=== PATIENT | female | born 1990 | race Caucasian/White ===

== ENCOUNTER → 2021-05-21 08:04 | Outpatient (CLI) | payer MEDICAID, SELFPAY ==
[2021-05-21 09:02] LABS: Absolute Lymphocyte Count 2.73 X10^3/uL (0.83-4.51); Absolute Neutrophil Count 3.9 X10^3/uL (2.0-7.7); Basophil# 0.02 X10^3/uL; Basophil% 0.3 % (0-1); Eosinophil# 0.19 X10^3/uL; Eosinophils% 2.6 % (0-5); Hematocrit 39.3 % (37-47); Hemoglobin 13.2 g/dL (12.0-15.0); Lymphocyte # 2.73 X10^3/ul (0.83-4.51); Lymphocyte % 36.7 % (19-41); Mean Corp Hgb Conc 33.6 g/dL (32-36); Mean Corpuscular Hgb 30.7 pg (27.0-32.0); Mean Corpuscular Volume 91.4 fL (81-99); Monocyte% 8.1 % (0-10); NRBC Flagged by Analyzer 0 % (0-5); Neutrophil # 3.87 X10^3/uL (2.7-7.7); Neutrophil % 51.9 % (47-70); Platelet Count 287 K/mm3 (150-450); RBC Distribution Width CV 11.7 % (11.6-14.6); RBC Distribution Width SD 39.4 fl (35.1-43.9); White Blood Count 7.4 K/mm3 (4.4-11.0)
[2021-05-21 09:03] LABS: Internal QC Validated? YES +Cl - CLEAR BKGD; Pregnancy, Urine Negative Negative
[2021-05-21 09:17] LABS: Anion Gap 6 (5-15); BUN 10 mg/dL (7-18); BUN/Creat Ratio 10.1 RATIO (10-20); Calcium,Total 9.5 mg/dL (8.5-10.1); Chloride 104 mmol/L (98-107); Creatinine, Serum 0.99 mg/dL (0.55-1.02); EST Glomerular Filtration Rate 70 mL/min (>60); Est Glom Filt Rate - Afr Amer 85 mL/min (>60); Glucose 102 mg/dL (74-106); Potassium 4.1 mmol/L (3.5-5.1); Sodium Level 137 mmol/L (136-145)
--- NOTE | 2021-05-21 16:37 | PCM.TILTTABL ---
Physician Tilt Table Report Patient's Physicians Primary Care Physician: Yesica Kohli NP Funeral Workers: Fermin Romo Indications/Diagnosis: Syncope Procedure Comments: The patient was brought to the noninvasive lab in the postabsorptive state. Initial vitals were obtained an EKG demonstrating normal sinus rhythm with a rate of 92 bpm and a blood pressure of 115/83 mmHg. The patient was then placed in the head upright tilt table position at 70 degrees. Continuous EKG monitoring was performed. Patient maintained sinus rhythm with sinus tachycardia throughout the recording. Nonspecific changes were noted on the EKG and patient complained of nonspecific findings. The patient was then placed back in the recumbent position after 20 minutes. Patient was administered 0.4 mg of sublingual nitroglycerin. Initial blood pressure was 116/87 mmHg with a heart rate of 116 bpm. The patient subsequently became more tachycardic with a heart rate going up to 144 bpm and patient feeling clammy chest tightness and subsequently lost consciousness. Patient was then placed in the recumbent position with recovery of the blood pressure recorded at 108/64 with a heart rate of 86 bpm. At the end of the procedure the blood pressure was 110/72 with a heart rate of 95 bpm. Summary: Orthostatic syncope noted on tilt table testing. Above appear to be provoked by sublingual nitroglycerin.
== END ==
PROVIDERS: PCP Registered Nurse; Referring Provider Registered Nurse; Visit Provider Registered Nurse
DX: Z01.812 Encounter for preprocedural laboratory examination (principal); I95.1 Orthostatic hypotension
CPT/HCPCS: 36415; 80048; 81025; 85025; 93660; J7040; A4216

== ENCOUNTER → 2021-07-17 08:05 | Outpatient (CLI) | payer MEDICAID, SELFPAY ==
--- NOTE | 2021-07-17 09:34 | TELEMED_ITS ---
[facility] has confirmed receipt of a request for visit. This document confirms receipt of the order initiating the consult. To find the results of the consultation, please view the patient's reports for the scanned Telemed Consult.
== END ==
PROVIDERS: PCP Registered Nurse
DX: G43.109 Migraine with aura, not intractable, without status migrainosus (principal); M43.6 Torticollis; Z87.898 Personal history of other specified conditions
CPT/HCPCS: 95819

== ENCOUNTER 2023-03-30 13:16 | Outpatient (RCR) | payer MEDICAID, SELFPAY ==
--- NOTE | 2023-03-31 13:06 | HP.OTFCE_ITS ---
Task Lift Floor (Occasional 1-33% of Day): 40# Floor (Frequent 34-66% of Day): 20# Floor (Constant 67-100% of Day): NA Floor PDL: Light-Medium Knee (Occasional 1-33% of Day): 40# Knee (Frequent 34-66% of Day): 20# Knee (Constant 67-100% of Day): NA Knee PDL: Light-Medium Waist (Occasional 1-33% of Day): 40# Waist (Frequent 34-66% of Day): 20# Waist (Constant 67-100% of Day): NA Waist PDL: Light-Medium Shoulder (Occasional 1-33% of Day): 35# Shoulder (Frequent 34-66% of Day): 18# Shoulder (Constant 67-100% of Day): NA Shoulder PDL: Light-Medium Overhead (Occasional 1-33% of Day): 15# Overhead (Frequent 34-66% of Day): 8# Overhead (Constant 67-100% of Day): n/a Overhead PDL: Sedentary-Light Comments: Pt would be able to tolerate physical demand level of light-medium work with lifting at floor, knee, waist and shoulder levels. pt would be able to tolerate physical demand level of light/sedentary work with overhead movement. pt can not lift on constant basis due to increase in pain. Work Activity/Posture Bending: Occasional Ability (1-33% of day) Comments: Pt gets lightheaded with consistent bending over. Squatting: Occasional Ability (1-33% of day) Comments: Pt requires external support when performing task. Kneeling: Occasional Ability (1-33% of day) Comments: Pt requires external support when performing task. Reaching out: Frequent Ability (34-66% of day) Reaching up: Frequent Ability (34-66% of day) Sitting: Constant Ability (67-100% of day) Comments: with ability to shift body weight Walking: Frequent Ability (34-66% of day) Comments: Pt can tolerate walking 10-15 min at a time. Standing: Occasional Ability (1-33% of day) Comments: Pt can tolerate standing 10 min prior to requiring a seated rest break. Reference Reference: Duration Sedentary Sedentary Light Light Light Medium Medium Medium Heavy Very Heavy Heavy Occasional (0-33% of day) Frequent (34-66% of day) Constant (67-100% of day) 10 # Negligible Negligible 15 # 8 # Negligible 20 # 10# Negli. 35 # 18 # 7 # 50 # 25 # 10 # 75 # 100 # >100 # 38 # 50 # >50 # 15 # 20 # >20 # Patient Information Height: 1.7 m Weight:: 99.79 kg Hand Dominance: right hand BP (Medication Use/Usual Values per pt report): Pt unable to report usual BP this date. 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 Pt manages pain and chronic neck/back pain by going to the Chiro. Pt reports she has severe IBS (remission ~5 years ago though recently dx). Pt reports she has had several falls, including down stairs or tripping over items. Pt reports injured back at around 8-9 years old and has been constant since. pt denies working with pain mtg. Diagnoses Diagnoses: Pt reports following dx: IBS out of remission ~1-2 weeks ago, GERD ADHD, Autism Fibromyalgia ~7-8 years ago and then ~2 years ago Insomnia Symptoms Symptoms: Pt reports neck and back pain, low endurance, migraines, IBS that limit her ability to perform tasks. Pt self manages pain at home with ice/heat. Per patient she has seizures around menstural cycle. Pain Pain: Pt reports at rest pain is around a 7/10 and she pushes herself by walking around the block. Pt reports she can carrying groceries about 20-30' though will have pain for ~1-1.5 day after. 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 She would be working 4 hrs a day with 2 days a week of 8hrs a day. Pt discontinued due to severe fatigue and pain. Pt worked through [employer] in multiple states [place], [place], [place]. Pt states she love kids. Occasionally dog sitting though has not since 2019. 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 pt feels she is unable to work at this time due to health symptoms Behavioral Behavioral: Pt reports Mental health - Depression, Anxiety, PTSD, Autism, POTS pt was cooperative throughout the assessment. ADLS ADLS: Daily schedule: Pt reports she can't shower/bath every day because it takes too much effort. Pt reports usually don't change 1-2 days, have very slow days Pt reports she usually does light food preparation for meals, or someone bring meals. Breakfast - toaster/microwave, cook 2-3 times a week - then has salad or sandwich Pt reports she wears soft/flowy, normally wear flip flops however wore shoes this date - no difficulty with shoe tying. Pt reports she relies on SNAP benefits - phone plan is free, healthcare is Free Pt reports she lives with cousin. Pt reports her apartment has no stairs to enter though has a flight 12 stairs up stairs though limits going up and down 2-3x a day. Physical Examination Physical Examination: Pt is well appearing. Prior to following activities pt HR 88 O2 98%. Pt states she is 7.5/10 pain because she dared to leave the house ROM: Pt demonstrates BUE and BLE within functional limits. Pt reports elbow pain post driving Strength: Fet (# per pressure) Right: shoulder extension/flexion 20.5#/14.9#; elbow extension/flexion 24#/21.7#; hip flexion 31.1#; quad 24.2#; hamstring 19# Left: shoulder extension/flexion 19.4#/15.2#; elbow extension/flexion 23.4#/25#; hip flexion 30.6#; quad 20.7#; hamstring 17.3# Right Propulsion Generator Repairer Strength Average: 56.00 Right Propulsion Generator Repairer Strength Percentile: 75th percentile Left Propulsion Generator Repairer Strength Average: 62.00 Left Propulsion Generator Repairer Strength Percentile: 72th percentile Right Lateral Pinch Average: 17.66 Right Lateral Pinch Percentile: 90th percentile Left Lateral Pinch Average: 15.66 Left Lateral Pinch Percentile: between 75th-90th percentile Right Tripod Pinch Average: 15.66 Right Tripod Pinch Percentile: between 50th-75th percentile Left Tripod Pinch Average: 18.33 Left Tripod Pinch Percentile: >90th percentile Comments: Pt reports some pain with tripod pinch on left hand. HR 86 at rest and while performing task. Sensation: Denies any deficits Fine Motor: 9 HPT right hand: 25.16sec - 0 percentile left hand: 23.5 sec - between 10th-25th percentile Balance: Functional reach test: 11 inches Interpretation: A score of 6 or less indicates a significant increased risk for falls. A score between 6-10 inches indicates a moderate risk for falls. no loss of balance noted during assessment. Non Material Handling Activities Bending: Pt participates and performs 3 times, 10x then 10x rapidly. 32.90 sec 10x, 27.94 sec 10x rapidly holds onto table HR 126 O2 95% Pt reports Back pain Lower back and some lightheadedness post task pt can bend forward on occasional ability Squatting: Pt participates and performs 3 times, 10x then 10x rapidly. Pt uses right hand holding on to table Pt completes on R knee 35.14 sec 10x no increase in speed HR 126 O2 95% pt demo ability to squat on occasional ability with external support Kneeling: Pt participates and performs 3 times, 10x then 10x rapidly. Kneeling 10x 55.40 sec, 10x rapidly 54.58 sec HR 145 97 Pt reports pain >8/10 pt demo ability to squat on occasional ability with external support Reaching out/up: Pt participates and performs 3 times, 10x then 10x rapidly. Pt reaches out 10x 22.87 sec no increase in speed when performing rapidly Pt reaching Up 10x 26.87 sec no increase in speed when performing rapidly HR 106 96% O2 pt demo reach up/put on frequent ability Walking: Pain in lower back and legs very sharp pain post 10 min walk inside and outside on even ground. Pt reports she did walk independently to the facility with a bag on back ~4#. HR126 recovers to 107 post 1 min pt can walk on frequent ability Standing: Pt tolerates standing ~15 min with intermittent leaning on counter top. pt can stand on occasional ability Sitting: Pt could sit for at least 30 minutes at a time with no apparent or expressed discomfort. Pt can sit on constant ability with shifting body weight. Climbing Stairs: Pt uses reciprocal pattern ascending 10 steps with one hand on handrail in 30 sec. When descending pt utilizes bilateral hands on rail and requires ~1 min to complete tasks with pt stating My legs are shaking. Therapist noted some shakiness, though able to walk another 10 min post task wi th no seated rest break. Dynamic Occasional Lifting Capacity Floor Lift: Pt max lift 40# from floor level, pt lifts with her back - independently pt demo lift with poor lifting mechanics Knee Lift: Pt max lift 40#, pt lifts with her back - independently pt demo lift with poor lifting mechanics Waist Lift: Pt max lift 40# - pt lifts with her back - independently pt demo lift with poor lifting mechanics Shoulder Lift: Pt max lift 35# - pt lifts with her back - independently pt demo lift with poor lifting mechanics Overhead Lift: Pt max lift 15# - pt lifts with her back - independently pt demo lift with poor lifting mechanics Carrying: Pt able to carry 35# while holding box close to body and compensating with posterior lean Comments: Pt required rest breaks standing after each lifting activity, starts to perspire after waist Pt did report lightheadedness, takes a drink and sits to recover heart rate varied from 123-138 throughout tasks.
--- NOTE | 2023-03-31 13:06 | HP.OTFCE.D ---
FCE D/C Summary Discharge text: BRIAN Jaspal CAMPUZANOJEANIE was seen for a one time visit for an FCE on 03/30/23 and is discharged.
== END 2023-03-30 19:00 | disposition home or self-care (01) ==
LOC: OT 13:16
PROVIDERS: PCP Registered Nurse; Referring Provider Registered Nurse; Visit Provider Registered Nurse
DX: M79.7 Fibromyalgia (principal)
CPT/HCPCS: 97166; 97750